=== PATIENT | female | born 1965 | race African-American/Black ===

== ENCOUNTER 2016-07-20 06:04 | Emergency (ER) | payer BC ==
[~2016-07-20] VITALS: Ht 175.3 cm; Wt 84.4 kg
[~2016-07-20 06:04] MED LIST: CEPH-264 PO; NAPR250T2 PO; PHEN-318 PO
[2016-07-20 06:16] VITALS: BP 151/89
[2016-07-20 06:30] LABS: BILIRUBIN,URINE NEGATIVE (NEG); GLUCOSE,URINE NEGATIVE (NEG); NITRITE,URINE NEGATIVE (NEG); PH,URINE 5.5; PROTEIN,URINE NEGATIVE (NEG-TRACE)
[2016-07-20 06:39] LABS: BACTERIA,URINE 0 /HPF (0-FEW); RBC,URINE 0 /HPF (0-2); SQUAMOUS EPITHELIAL CELL,UR MANY /LPF; WBC,URINE 0 /HPF (0-4)
[2016-07-20] MEDS ORDERED: CIPR500T94 PO (06:53)
[2016-07-20] MEDS ORDERED: PHEN-318 PO (06:53)
--- NOTE | 2016-07-20 06:53 | PHYS DOC ---
Past Medical History Past Medical History: Hypertension Past Surgical History: Hysterectomy, Tubal ligation Additional Past Surgical Histo: oral surgery Alcohol Use: Rarely Drug Use: None Adult General Chief Complaint Chief Complaint: PAIN ON URINATION HPI HPI 51-year-old female presents with urinary burning and frequency. She states she' s actually had frequency for several weeks but is just started burning recently. She denies any fever chills sweats nausea or vomiting. She does not notice any blood in her urine. She has never been diagnosed with diabetes. She has no vaginal bleeding or discharge or no dyspareunia. [] Review of Systems Review of Systems Constitutional: Denies fever or chills [] Eyes: Denies change in visual acuity, redness, or eye pain [] HENT: Denies nasal congestion or sore throat [] Respiratory: Denies cough or shortness of breath [] Cardiovascular: No additional information not addressed in HPI [] GI: Denies abdominal pain, nausea, vomiting, bloody stools or diarrhea [] : Per history of present illness [] Musculoskeletal: Denies back pain or joint pain [] Integument: Denies rash or skin lesions [] Neurologic: Denies headache, focal weakness or sensory changes [] Endocrine: Denies polyuria or polydipsia [] Allergies Allergies Allergies Coded Allergies Type Severity Reaction Last Updated Verified No Known Drug Allergies 10/18/14 No Physical Exam Physical Exam Constitutional: Well developed, well nourished, no acute distress, non-toxic appearance. [] HENT: Normocephalic, atraumatic, bilateral external ears normal, oropharynx moist, no oral exudates, nose normal. [] Eyes: PERRLA, EOMI, conjunctiva normal, no discharge. [] Neck: Normal range of motion, no tenderness, supple, no stridor. [] Cardiovascular:Heart rate regular rhythm, no murmur [] Lungs & Thorax: Bilateral breath sounds clear to auscultation [] Abdomen: Bowel sounds normal, soft, no tenderness, no masses, no pulsatile masses. [] Skin: Warm, dry, no erythema, no rash. [] Back: No tenderness, no CVA tenderness. [] Extremities: No tenderness, no cyanosis, no clubbing, ROM intact, no edema. [] Neurologic: Alert and oriented X 3, normal motor function, normal sensory function, no focal deficits noted. [] Psychologic: Affect normal, judgement normal, mood normal. [] Current Patient Data Vital Signs Vital Signs Date Time Temp Pulse Resp B/P Pulse Ox O2 Delivery O2 Flow Rate FiO2 07/20/16 06:16 98.1 69 20 99 Room Air 98.1 Lab Values Laboratory Tests Test 07/20/16 06:11 07/20/16 06:39 Urine Collection Type Unknown Urine Color Yellow Urine Clarity Clear Urine pH 5.5 Urine Specific [place] 1.025 Urine Protein Negativemg/dL (NEG-TRACE) Urine Glucose (UA) Negativemg/dL (NEG) Urine Ketones (Stick) Negativemg/dL (NEG) Urine Blood Negative (NEG) Urine Nitrite Negative (NEG) Urine Bilirubin Negative (NEG) Urine Urobilinogen Dipstick 1.0mg/dL (0.2 mg/dL) Urine Leukocyte Esterase Negative (NEG) Urine RBC 0/HPF (0-2) Urine WBC 0/HPF (0-4) Urine Squamous Epithelial Cells Many/LPF Urine Bacteria 0/HPF (0-FEW) Urine Mucus Marked/LPF Glucose (Fingerstick) 91mg/dL (70-99) Accu-Chek was 91 and no glucose or ketones noted in urine EKG EKG [] Radiology/Procedures Radiology/Procedures [] Course & Med Decision Making Course & Med Decision Making Pertinent Labs and Imaging studies reviewed. (See chart for details) [ED course: By which reveals a 51-year-old female with dysuria. She did describe a prolonged urinary frequency so I checked a [id number] glucose which was normal. Go ahead and treat the patient with a short course of antibiotics and Pyridium to see if this does help.] Dragon Disclaimer Dragon Disclaimer This electronic medical record was generated, in whole or in part, using a voice recognition dictation system. Departure Departure Impression: Primary Impression: Dysuria Disposition: 01 HOME, SELF-CARE Condition: STABLE Referrals: ROSEMARY DIAZ MD (PCP) Patient Instructions: Dysuria Additional Instructions: Follow with your family doctor next week if no improvement. Return to the emergency department with new or concerning symptoms Scripts Phenazopyridine Hcl (Pyridium)200 Mg [id number] Mg PO Q8HRS PRN DYSURIA #10 TAB Prov:AUSTIN KEITH DO 07/20/16 Ciprofloxacin Hcl (Cipro)500 Mg Tablet1 Tab PO BID PRN UTI #6 TAB Prov:AUSTIN KEITH DO 07/20/16 AUSTIN KEITH DO Jul 20, 2016 06:53
== END 2016-07-20 07:03 | disposition home or self-care (01) ==
LOC: ER 06:04
DX: R30.0 Dysuria (principal); I10 Essential (primary) hypertension; Z90.710 Acquired absence of both cervix and uterus; Z98.51 Tubal ligation status
CPT/HCPCS: 81001; 82947; 99283

== ENCOUNTER 2016-12-29 09:47 | Emergency (ER) | payer BC ==
[~2016-12-29] VITALS: Ht 175.3 cm; Wt 96.8 kg
[~2016-12-29 09:47] MED LIST changes: +CIPR500T94 PO
--- NOTE | 2016-12-29 10:03 | PHYS DOC ---
Past Medical History Past Medical History: Hypertension Past Surgical History: Hysterectomy, Tubal ligation Additional Past Surgical Histo: oral surgery Alcohol Use: Rarely Drug Use: None Adult General Chief Complaint Chief Complaint: CHEST PAIN-NON CARDIAC NATURE HPI HPI Patient is a 51 year old L presents emergency department stating that she has having left chest pain or discomfort. She states at 1:00 this morning she developed a pain which woke her up. She states that it hurts more when she moves to us return. She states that it feels like a pulling sensation. Patient denies any shortness of air or difficulty breathing. She denies any radiation of pain. Patient states she did take a 500 mg of Tylenol which seemed to have helped the pain and discomfort slightly. Patient does state she has a history of high blood pressure but denies any blurred vision headaches or swelling in bilateral legs. Review of Systems Review of Systems Constitutional: Denies fever or chills [] Eyes: Denies change in visual acuity, redness, or eye pain [] HENT: Denies nasal congestion or sore throat [] Respiratory: Denies cough or shortness of breath [] Cardiovascular: No additional information not addressed in HPI [] GI: Denies abdominal pain, nausea, vomiting, bloody stools or diarrhea [] : Denies dysuria or hematuria [] Musculoskeletal: Denies back pain or joint pain [] Integument: Denies rash or skin lesions [] Neurologic: Denies headache, focal weakness or sensory changes [] Endocrine: Denies polyuria or polydipsia [] Current Medications Current Medications Current Medications Medications (Trade) Dose Ordered Sig/Tiburcio Start Time Stop Time Status Last Admin Dose Admin Ibuprofen (Motrin) 800 mg 1X ONCE 12/29/16 11:15 12/29/16 11:16 DC 12/29/16 11:33 800 MG Allergies Allergies Allergies Coded Allergies Type Severity Reaction Last Updated Verified No Known Drug Allergies 10/18/14 No Physical Exam Physical Exam Constitutional: Well developed, well nourished, no acute distress, non-toxic appearance. [] HENT: Normocephalic, atraumatic, bilateral external ears normal, oropharynx moist, no oral exudates, nose normal. [] Eyes: PERRLA, EOMI, conjunctiva normal, no discharge. [] Neck: Normal range of motion, no tenderness, supple, no stridor. [] Cardiovascular:Heart rate regular rhythm, no murmur [] Lungs & Thorax: Bilateral breath sounds clear to auscultation chest pain was reproducible in the left chest area. Noted with gentle palpation. Skin: Warm, dry, no erythema, no rash. [] Back: No tenderness Extremities: No tenderness, no cyanosis, no clubbing, ROM intact, no edema. [] Neurologic: Alert and oriented X 3, normal motor function, normal sensory function, no focal deficits noted. [] Psychologic: Affect normal, judgement normal, mood normal. [] Current Patient Data Vital Signs Vital Signs Date Time Temp Pulse Resp B/P (MAP) Pulse Ox O2 Delivery O2 Flow Rate FiO2 12/29/16 11:28 62 12 139/78 (98) 100 Room Air 12/29/16 09:55 98.1 98.1 Lab Values Laboratory Tests Test 12/29/16 11:00 POC Troponin I 0.00 ng/ml (<0.08) EKG EKG EKg completed at 0956 with HR 61 SR noted no STEMI per Dr Nicole[] Radiology/Procedures Radiology/Procedures [][facility] [address] [place] [address] IMAGING REPORT Signed PATIENT: JONATHAN GARCIA ACCOUNT: [id number] : 1965 LOCATION: ER AGE: 51 SEX: F EXAM STATUS: REG ER ORD. PHYSICIAN: ROSEANN JUAREZ APRN REASON: chest discomfort with movement PROCEDURE: CHEST PA & LATERAL Indication chest pain. PA and lateral views of the chest were obtained and are compared to an examination just over 10 years ago. The heart and pulmonary vessels appear normal. The lungs are clear. There is no pleural fluid or pneumothorax. The bony structures appear grossly intact. IMPRESSION: No acute or focal process is seen in chest DICTATED and SIGNED BY: ELIO AARON MD DATE: 12/29/16 1036 CC: ROSEANN JUAREZ APRN; ROSEMARY DIAZ MD; NON,STAFF ~ Course & Med Decision Making Course & Med Decision Making Pertinent Labs and Imaging studies reviewed. (See chart for details) Wrist x-ray was negative for any abnormalities. Patient will be provided with ibuprofen here in the emergency department. Plan is to discharge patient home with recommendations for ibuprofen every 8 hours 800 mg. Also recommended taking this with food to prevent stomach upset. Patient was also recommended to use warm moist packs to the area. Since symptoms to return back to emergency department as been provided. Patient agrees with discharge instructions treatment regimens and follow-up recommendations. [] Dragon Disclaimer Dragon Disclaimer This electronic medical record was generated, in whole or in part, using a voice recognition dictation system. Departure Departure Impression: Primary Impression: Chest wall pain Disposition: HOME, SELF-CARE Condition: STABLE Referrals: ROSEMARY DIAZ MD (PCP) Patient Instructions: Chest Wall Pain, [id number] Additional Instructions: Activity as tolerated. Ibuprofen 800 mg every 8 hours with food stop taking few develop an upset stomach. Warm moist packs to the chest wall area several times a day. Follow-up to primary care physician in the next 3-5 days. Return back to emergency prior signs symptoms that become worse. ROSEANN JUAREZ APRN Dec 29, 2016 10:02
--- NOTE | 2016-12-29 10:39 | RAD ---
Indication chest pain. PA and lateral views of the chest were obtained and are compared to an examination just over 10 years ago. The heart and pulmonary vessels appear normal. The lungs are clear. There is no pleural fluid or pneumothorax. The bony structures appear grossly intact. IMPRESSION: No acute or focal process is seen in chest
[2016-12-29] MEDS ORDERED: IBUPROFEN 800 MG TABLET. PO ONE (11:15)
[2016-12-29 11:28] VITALS: BP 139/78
--- NOTE | 2016-12-29 11:40 | EKG ---
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
== END 2016-12-29 11:34 | disposition home or self-care (01) ==
LOC: ER 09:47
DX: R07.89 Other chest pain (principal); I10 Essential (primary) hypertension; Z90.710 Acquired absence of both cervix and uterus
CPT/HCPCS: 71020; 84484; 93005; 99284-25

== ENCOUNTER 2019-01-24 01:46 | Emergency (ER) | payer SELFPAY ==
[~2019-01-24] VITALS: Ht 175.3 cm; Wt 83.0 kg
[~2019-01-24 01:46] MED LIST changes: -NAPR250T2 PO; +NAPR250T6 PO
[2019-01-24 01:48] VITALS: BP 156/82
--- NOTE | 2019-01-24 05:34 | PHYS DOC ---
Past Medical History Past Medical History: Hypertension Past Surgical History: Hysterectomy, Tubal ligation Additional Past Surgical Histo: oral surgery Alcohol Use: Rarely Drug Use: None Adult General Chief Complaint Chief Complaint: EYE PROBLEMS HPI HPI Patient is a 53 year old female who presents with a stye to her left upper eyelid. Symptoms began yesterday. She reports tearing, ocular pain, denies change in vision. No medications or therapy sticking prior to ED arrival. [] Review of Systems Review of Systems Review symptoms as per history of present illness. All other systems were reviewed and found to be within normal limits, except as documented in this note. Allergies Allergies Allergies Coded Allergies Type Severity Reaction Last Updated Verified No Known Drug Allergies 10/18/14 No Physical Exam Physical Exam Constitutional: Well developed, well nourished, no acute distress, non-toxic appearance. [] HENT: Normocephalic, atraumatic, bilateral external ears normal, oropharynx moist, no oral exudates, nose normal. [] Eyes: PERRLA, EOMI, conjunctiva normal, sty left upper eyelid, lower lid edema, no blepharitis or drainage. [] Neck: Normal range of motion, no tenderness, supple, no stridor. [] Cardiovascular:Heart rate regular rhythm, no murmur [] Lungs & Thorax: Bilateral breath sounds clear to auscultation [] Current Patient Data Vital Signs Vital Signs Date Time Temp Pulse Resp B/P (MAP) Pulse Ox O2 Delivery O2 Flow Rate FiO2 01/24/19 01:48 98.8 65 20 156/82 (106) 100 Room Air 98.8 EKG EKG [] Radiology/Procedures Radiology/Procedures [] Course & Med Decision Making Course & Med Decision Making Pertinent Labs and Imaging studies reviewed. (See chart for details) [Recommend supportive care, watchful waiting and follow-up with PCP and/or eye Dr.] Ignacio Disclaimer Ignacio Disclaimer This electronic medical record was generated, in whole or in part, using a voice recognition dictation system. Departure Departure Impression: Primary Impression: Hordeolum of left upper eyelid Disposition: 02 [facility]SFER [facility] Condition: STABLE Patient Instructions: Sty Additional Instructions: Apply compresses and take daily NSAIDs. Follow-up with PCP or and/or eye doctor in 1-2 weeks if symptoms persist. JAN PATTON DO Jan 24, 2019 05:34
== END 2019-01-24 02:32 | disposition home or self-care (01) ==
LOC: ER 01:46
DX: H00.014 Hordeolum externum left upper eyelid (principal); I10 Essential (primary) hypertension
CPT/HCPCS: 99281